=== PATIENT | female | born 1965 | race Caucasian/White ===

== ENCOUNTER 2022-02-21 09:04 | Emergency (ER) | payer SELFPAY ==
--- NOTE | 2022-02-21 09:06 | XRR_ITS ---
PROCEDURE INFORMATION: Exam: XR Chest Exam date and time: 02/21/2022 9:24 AM Age: 56 years old Clinical indication: Middle chest pain. TECHNIQUE: Imaging protocol: XR of the chest. Views: 1 view. COMPARISON: No relevant prior studies available. FINDINGS: Lungs: No pulmonary consolidation. Pleural spaces: No pleural effusion. No pneumothorax. Heart/Mediastinum: The cardiac silhouette is unremarkable. No gross evidence of pneumomediastinum. Diaphragm: There is mild elevation of the right hemidiaphragm. Bones/joints: No gross fracture. XR/XR chest 1V portable [id number] IMPRESSION: 1. No acute cardiopulmonary abnormality identified. 2. Mild elevation of the right hemidiaphragm.
--- NOTE | 2022-02-21 09:07 | ECG_ITS ---
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 Measurements Intervals Kathleen Rate: 62 P: 56 NC: 172 QRS: 70 QRSD: 92 T: 52 QT: 413 QTc: 422 Interpretive Statements SINUS RHYTHM LOW QRS VOLTAGE IN PRECORDIAL LEADS [QRS DEFLECTION < 1.0 mV IN CHEST LEADS] No previous ECG available for comparison Electronically Signed On 02-21-2022 20:26:46 CDT by Sarmad Armenta M.D. [id number]
[2022-02-21 09:10] VITALS: BP 165/91; PULSE 73; RESP 16; TEMP 36.9; O2SAT 97; BMI 28.1
--- NOTE | 2022-02-21 09:44 | W.ED.GENADLT ---
HPI - General Adult General: Chief complaint: General Medical Stated complaint: chest tightness; flunctuating BP Time Seen by Provider: 02/21/22 09:19 Source: patient Mode of arrival: ambulatory Limitations: no limitations History of Present Illness: 56-year-old female states she has been having GERD self Tuesday and Tuesday. States she feels like she may have pushed herself too hard and got dehydrated. States this morning she checked her blood pressure had been running slightly high and she started having some pressure type pains in her chest that was short lasted. States she did drink some water at home is actually feels much improved she states she has no complaints at this time denies any fever denies any shortness of breath. Associated symptoms: Reports chest pain; Deny dyspnea, headache(s), nausea, rash or vomiting Review of Systems Const: Denies: fever(s), chills, body aches or change in appetite Eyes: Denies: blurry vision or eye discomfort ENMT: Denies: throat pain or dental pain Card: Reports: chest pain Resp: Denies: dyspnea GI: Denies: abdominal pain, nausea, vomiting or diarrhea : Denies: dysuria Musc: Denies: neck pain or back pain Skin/Breast: Denies: rash Neuro: Denies: headache(s) Psych: Denies: depression Romel/Lymph: Denies: easy bruising All/Imm: Denies: urticaria PFS ED PFSH: Medical History (Updated 02/21/22 @ 12:27 by Deana Morales MD) No pertinent past medical history Physical Exam Const: COMMON NORMALS: no acute distress, patient oriented x3 and healthy appearing HENMT: COMMON NORMALS: normocephalic and atraumatic HEAD & SCALP: normocephalic and atraumatic Eye: COMMON NORMALS: Equal, round and reactive pupils present and EOMs intact bilaterally PUPIL: Yes Equal, round and reactive pupils present Neck/C-Spine: COMMON NORMALS: full ROM and supple Chest: COMMONS NORMALS: normal inspection of the chest and normal palpation of entire chest wall Resp: COMMON NORMALS: normal respiratory effort, No retractions, No use of accessory muscles and clear to auscultation bilaterally AUSCULTATION: clear to auscultation bilaterally Cardio: COMMON NORMALS: regular rate, regular rhythm and No murmurs present (Cardio) RATE: regular rate RHYTHM: regular rhythm GI: COMMON NORMALS: Normal to inspection, nondistended, normoactive bowel sounds present, Soft to palpation, non-tender and no masses PALPATION: Yes Soft to palpation Extremity: COMMON NORMALS: normal to inspection and full ROM Neuro: COMMON NORMALS: patient oriented x3, moves all extremities and no focal motor deficits Psych: COMMON NORMALS: mental status grossly normal, Normal thought process present and cooperative THOUGHT PROCESS: Normal thought process present Skin: COMMON NORMALS: no rashes or lesions noted and no wounds GENERAL SKIN EXAM: no rashes or lesions noted Course Vital Signs: Vital signs: Vital Signs Temperature 98.4 F 02/21/22 09:10 Pulse Rate 61 02/21/22 12:40 Respiratory Rate 16 02/21/22 12:40 Blood Pressure 139/82 02/21/22 12:40 Pulse Oximetry 97 02/21/22 12:40 [facility] - General Adult Medical Decision Making Patient presents here with chest pain is atypical in nature she is pain-free here initial repeat troponins are normal she has no signs of acute coronary syndrome pulmonary embolism or aortic dissection she is stable for discharge follow-up PCP and return if worsening. Lab Data : 02/21/22 09:40 02/21/22 10:58 Radiology Impressions Chest X-Ray 02/21/22 09:06 IMPRESSION: 1. No acute cardiopulmonary abnormality identified. 2. Mild elevation of the right hemidiaphragm. Laboratory Results WBC 4.2 10^3/uL (4.0-10.0) 02/21/22 09:40 RBC 4.77 10^6/uL (4.1-5.3) 02/21/22 09:40 Hgb 14.9 g/dL (11.5-15.3) 02/21/22 09:40 Hct 44.9 % (37.0-47.0) 02/21/22 09:40 MCV 94.1 fl (81-99) 02/21/22 09:40 MCH 31.2 pg (28.0-34.0) 02/21/22 09:40 MCHC 33.2 g/dL (30.0-36.0) 02/21/22 09:40 RDW 12.8 % (12.1-15.1) 02/21/22 09:40 Plt Count 180 10^3/cmm (130-400) 02/21/22 09:40 MPV 11.6 fL (7.4-10.4) H 02/21/22 09:40 Neut % (Auto) 46.9 % 02/21/22 09:40 Lymph % (Auto) 43.8 % 02/21/22 09:40 [place] % (Auto) 5.7 % 02/21/22 09:40 Eos % (Auto) 2.4 % 02/21/22 09:40 Baso % (Auto) 1.0 % 02/21/22 09:40 Neut # (Auto) 1.96 10^3/uL (1.8-7.7) 02/21/22 09:40 Lymph # (Auto) 1.8 10^3/uL (0.8-4.8) 02/21/22 09:40 [place] # (Auto) 0.2 10^3/uL (0.2-0.9) 02/21/22 09:40 Eos # (Auto) 0.1 10^3/uL (0.0-0.8) 02/21/22 09:40 Baso # (Auto) 0.0 10^3/uL (0.0-0.1) 02/21/22 09:40 Nucleated RBC % (auto) 0 % 02/21/22 09:40 Nucleated RBCs # 0.0 /100WBC 02/21/22 09:40 Sodium 140 mmol/L (136-145) 02/21/22 10:58 Potassium 4.2 mmol/L (3.5-5.1) 02/21/22 10:58 Chloride 106 mmol/L (98-107) 02/21/22 10:58 Carbon Dioxide 24 mmol/L (22-29) 02/21/22 10:58 Anion Gap 14.2 (5-19) 02/21/22 10:58 BUN 13 mg/dL (6-20) 02/21/22 10:58 Creatinine 0.7 mg/dL (0.5-0.9) 02/21/22 10:58 GFR Calculation 86.6 mL/min (90-130) L 02/21/22 10:58 Glucose 138 mg/dL (65-115) H 02/21/22 10:58 Calculated Osmolality 292 mOsm/kg (285-295) 02/21/22 10:58 Calcium 8.6 mg/dL (8.5-10.5) 02/21/22 10:58 Total Bilirubin 0.3 mg/dL (0.15-1.2) 02/21/22 10:58 AST 26 U/L (0-32) 02/21/22 10:58 ALT 40 U/L (0-33) H 02/21/22 10:58 Alkaline Phosphatase 86 IU/L (35-105) 02/21/22 10:58 Troponin T Baseline 13 ng/L (0-10) H 02/21/22 09:40 Troponin T 120 Minute 13.32 ng/L (0-10) H 02/21/22 11:40 Delta Troponin T 0.32 ABS# (0-10) 02/21/22 11:40 Total Protein 7.1 g/dL (6.6-8.7) 02/21/22 10:58 Albumin 4.0 g/dL (3.5-5.2) 02/21/22 10:58 Globulin 3.1 g/dL (1.3-4.6) 02/21/22 10:58 EKG Data EKG 1: I personally reviewed and interpreted this EKG as follows: EKG interpretation date: 02/21/22 EKG interpretation time: 09:39 Interpretation: nsr hr [address] or t wave abnormalities qrs 92 qtc 419 Computer generated interpretation: Chest X-Ray 02/21/22 09:06 IMPRESSION: 1. No acute cardiopulmonary abnormality identified. 2. Mild elevation of the right hemidiaphragm. Discharge Plan Discharge Patient Disposition: Home Clinical Impression: Chest pain Qualifiers: Chest pain type: unspecified Qualified Code(s): R07.9 - Chest pain, unspecified Condition: Stable Discharge Orders: Discharge ED (Routine); Ordered 02/21/22 Ordered By: Deana Morales Discharge Diet: Advance as tolerated Discharge Activity: Resume usual activity Patient Instructions: Chest Pain (ED) Coding Level of Care Code ED Mortgage Funder for Chg Fwd Exam Comprehensive
[2022-02-21] MEDS: sodium chloride 0.9% 1,000 ML 999 ML IV (09:47)
[2022-02-21 09:48] VITALS: BP 140/84; PULSE 74; RESP 16; O2SAT 95
[2022-02-21 10:26] LABS: Troponin(5th) Baseline 13 ng/L (0-10)
[2022-02-21 10:33] LABS: Eosinophils # 0.1 10^3/uL (0.0-0.8); Eosinophils % 2.4 %; Hematocrit 44.9 % (37.0-47.0); Hemoglobin 14.9 g/dL (11.5-15.3); Lymphocytes # 1.8 10^3/uL (0.8-4.8); Lymphocytes % 43.8 %; Mean Corpuscular HGB Conc 33.2 g/dL (30.0-36.0); Mean Corpuscular Hemoglobin 31.2 pg (28.0-34.0); Mean Corpuscular Volume 94.1 fl (81-99); Mean Platelet Volume 11.6 fL (7.4-10.4); Monocytes # 0.2 10^3/uL (0.2-0.9); Monocytes % 5.7 %; Neutrophils # 1.96 10^3/uL (1.8-7.7); Neutrophils % 46.9 %; Nucleated Red Blood Cells % 0 %; Platelet Count 180 10^3/cmm (130-400); Red Blood Count 4.77 10^6/uL (4.1-5.3); Red Cell Distribution Width 12.8 % (12.1-15.1); White Blood Count 4.2 10^3/uL (4.0-10.0)
[2022-02-21 11:16] VITALS: PULSE 62; RESP 15; O2SAT 99
[2022-02-21 11:27] LABS: Alanine Aminotransferase 40 U/L (0-33); Alkaline Phosphatase 86 IU/L (35-105); Anion Gap 14.2 (5-19); Aspartate Amino Transferase 26 U/L (0-32); Blood Urea Nitrogen 13 mg/dL (6-20); Calcium 8.6 mg/dL (8.5-10.5); Carbon Dioxide 24 mmol/L (22-29); Chloride 106 mmol/L (98-107); Globulin 3.1 g/dL (1.3-4.6); Glomerular Filtration Rate 86.6 mL/min (90-130); Glucose 138 mg/dL (65-115); Osmolality Calculated 292 mOsm/kg (285-295); Potassium 4.2 mmol/L (3.5-5.1); Sodium 140 mmol/L (136-145); Total Bilirubin 0.3 mg/dL (0.15-1.2); Total Protein 7.1 g/dL (6.6-8.7)
[2022-02-21 12:17] LABS: Troponin 5 2HR 13.32 ng/L (0-10)
[2022-02-21 12:24] LABS: Troponin 5 2HR Delta 0.32 ABS# (0-10)
[2022-02-21 12:40] VITALS: BP 139/82; PULSE 61; RESP 16; O2SAT 97
== END 2022-02-21 12:42 | disposition home or self-care (01) ==
PROVIDERS: Emergency Provider Emergency Medicine
DX: R07.89 Other chest pain (principal)
CPT/HCPCS: 71045; 80053; 84484; 85025; 93005; 96360; 99285; J7030

== ENCOUNTER → 2022-03-02 11:11 | Outpatient (BNVA) | payer SELFPAY | PROVIDERS: Visit Provider Family Medicine | DX: R79.89 Other specified abnormal findings of blood chemistry (principal); Z13.220 Encounter for screening for lipoid disorders; Z13.6 Encounter for screening for cardiovascular disorders; Z76.89 Persons encountering health services in other specified circumstances | CPT/HCPCS: 80053; 80061 ==

== ENCOUNTER → 2025-07-08 14:17 | Outpatient (BNVA) | payer SELFPAY | PROVIDERS: PCP Family Medicine; Visit Provider Family Medicine | DX: Z13.6 Encounter for screening for cardiovascular disorders (principal) | CPT/HCPCS: 80053; 80061; 83036; 84443; 85025 ==

== ENCOUNTER → 2025-07-18 09:36 | Outpatient (BNVA) | payer SELFPAY | PROVIDERS: PCP Family Medicine; Visit Provider Family Medicine | DX: Z01.419 Encounter for gynecological examination (general) (routine) without abnormal findings (principal) | CPT/HCPCS: 87624 ==

== ENCOUNTER 2025-07-24 14:46 | Outpatient (CLI) | payer SELFPAY ==
--- NOTE | 2025-07-24 14:40 | MM_ITS ---
WS: [id number] BILATERAL 3D TOMOSYNTHESIS DIGITAL SCREENING MAMMOGRAPHY WITH CAD CLINICAL INFORMATION: screening HISTORY: Screening mammogram. No current complaints. COMPARISON: None. TECHNIQUE: Bilateral CC and MLO views. FINDINGS: Scattered fibroglandular densities bilaterally. No suspicious focal mass, asymmetry, calcifications, or architectural distortion. No evidence of malignancy. Punctate and lucent centered calcifications. MM/MM scr tomosynthesis [id number] IMPRESSION: DENSITY: There are scattered areas of fibroglandular density. BI-RADS: 2 - Benign. FOLLOW UP: 1 Year Follow-up Recommend return to annual screening mammography.
== END 2025-07-24 14:47 | disposition home or self-care (01) ==
LOC: RAD 14:48
PROVIDERS: PCP Family Medicine; Visit Provider Family Medicine
DX: Z12.31 Encounter for screening mammogram for malignant neoplasm of breast (principal); R92.1 Mammographic calcification found on diagnostic imaging of breast; R92.323 Mammographic fibroglandular density, bilateral breasts
CPT/HCPCS: 77063; 77067